=== PATIENT | female | born 1970 | race Caucasian/White ===

== ENCOUNTER 2022-07-14 12:12 | Emergency (ER) | payer MEDICAID ==
[2022-07-14] MEDS ORDERED: METF-414 MT (17:50)
[2022-07-14] MEDS ORDERED: FAMO-135 PO (17:50)
== END 2022-07-14 13:22 | disposition left against medical advice (07) ==
LOC: ER 12:12
DX: Z53.21 Procedure and treatment not carried out due to patient leaving prior to being seen by health care provider (principal)

== ENCOUNTER 2022-07-14 13:39 | Emergency (ER) | payer MEDICAID ==
[~2022-07-14] VITALS: Ht 162.6 cm; Wt 75.0 kg
[2022-07-14 13:55] VITALS: BP 162/94
[2022-07-14] MEDS ORDERED: KETOROLAC 60MG/2ML VIAL IM STA (16:01)
[2022-07-14 16:19] LABS: CLARITY URINE CLEAR (CLEAR); COLOR URINE YELLOW (YELLOW); KETONES URINE TRACE (NEGATIVE); LEUKOCYTE ESTERASE URINE TRACE (NEGATIVE); NITRITE URINE NEGATIVE (NEGATIVE); OCCULT BLOOD URINE NEGATIVE (NEGATIVE); PROTEIN URINE NEGATIVE (NEGATIVE); SPECIFIC GRAVITY URINE 1.012 (1.005-1.030); UROBILINOGEN URINE 0.2 E.U./dL (0.2-1.0)
[2022-07-14] MEDS ORDERED: MAGNESIUM/ALUMINUM HYDROXIDE/SIMETHICONE 30ML UDC PO STA (16:22)
[2022-07-14 16:27] LABS: BASOPHILS % 0.2 % (0.0-2.0); EOSINOPHILS % 0.9 % (0.0-5.0); HEMATOCRIT. 42.4 % (36.0-48.0); HEMOGLOBIN. 14.3 g/dL (12.0-16.0); LYMPHOCYTES % 39.3 % (20.0-50.0); MEAN CORPUSCULAR HEMOGLOBIN 29.3 pg (28.0-32.0); MEAN CORPUSCULAR VOLUME 87.1 fL (81.0-99.0); MEAN PLATELET VOLUME 7.6 fl (7.4-10.4); MONOCYTES % 6.5 % (2.0-8.0); NEUTROPHILS % 53.1 % (40.0-76.0); PLATELET 357 x1000/uL (130-400); RED BLOOD CELL COUNT 4.86 mill/uL (4.2-5.4); RED CELL DISTRIBUTION WIDTH 13.4 % (11.6-14.6)
[2022-07-14] MEDS ORDERED: FAMOTIDINE 20MG TABLET PO ONE (16:30)
[2022-07-14 16:36] LABS: CHLORIDE 103 mEq/L (98-107)
[2022-07-14 16:59] LABS: HCG SCREEN NEGATIVE
[2022-07-14] MEDS ORDERED: METF-414 MT (17:50)
[2022-07-14] MEDS ORDERED: FAMO-135 PO (17:50)
== END 2022-07-14 18:13 | disposition home or self-care (01) ==
LOC: ER 13:39
DX: R10.33 Periumbilical pain (principal); R73.9 Hyperglycemia, unspecified
CPT/HCPCS: 36415; 74176; 80053; 81003; 81025; 82962; 83690; 84703; 85025; 96372; 99284; J1885